=== PATIENT | male | born 1945 | race American Indian/Alaskan Native ===

== ENCOUNTER 2016-08-28 10:28 | Outpatient (CLI) | payer MEDICARE ==
[2016-08-28 11:53] LABS: Blood Urea Nitrogen 13 mg/dL (9-20)
== END 2016-08-28 10:29 | disposition home or self-care (01) ==
LOC: CT 10:28
PROVIDERS: ATTEND Specialist
DX: N28.1 Cyst of kidney, acquired (principal); R16.0 Hepatomegaly, not elsewhere classified
CPT/HCPCS: 36415; 82565; 84520

== ENCOUNTER 2016-09-25 08:39 | Outpatient (CLI) | payer MEDICARE ==
[2016-09-25] MEDS ORDERED: NACL ONE (09:00)
--- NOTE | 2016-09-26 11:55 | Cat Scan Report ---
CT ABDOMEN WITH AND WITHOUT CONTRAST: HISTORY: Hepatitis C, right hepatic lobe mass, septated right renal mass/cyst. TECHNIQUE: Helical CT before and after IV contrast. Sagittal and coronal reformatted images. Please note that an IV infiltration occurred during the contrast portion of this exam. This is essentially a noncontrast CT. COMPARISON: Ultrasound right upper quadrant dated 04/07/14. FINDINGS: This patient was an extremely difficult IV placement candidate. Unfortunately, during the contrast administration, the IV infiltrated. The patient was treated in the CT department with good results. Unfortunately, the contrast portion of this exam is suboptimal. This is essentially a noncontrast CT. The liver is normal size. There is an ill-defined hypodense mass in the right hepatic lobe measuring 2.5 cm on image 77, series 3. No other suspicious liver lesion is appreciated. There is no evidence for cirrhosis or advanced parenchymal disease. Correlation is made with the ultrasound performed in 2013. I do not clearly see this right hepatic lobe lesion on the previous ultrasound. The spleen measures 11.7 cm. There are 3 or 4 similar-appearing hypodense lesions measuring up to 1.5 cm. The remainder of the spleen is unremarkable. The biliary system, pancreas, left kidney and bilateral adrenal glands are unremarkable. There is a 4.5 cm cyst projecting from the anterior right kidney with single internal septation. This cyst has increased in size since the previous ultrasound where it measured 3.6 cm. This has the appearance of a Bosniak class 2 cyst. The visualized bowel loops are unremarkable. The aorta is normal caliber. No bulky abdominal mass or adenopathy. No ascites. Heart size is within normal limits. The lung bases are clear. IMPRESSION: This is a limited noncontrast exam secondary to IV infiltration. The noncontrast CT images do demonstrate a 2.5 cm ill-defined hypodense mass in the right hepatic lobe. I cannot characterize this lesion further without a good IV contrast examination. With history of hepatitis C, I cannot exclude a liver neoplasm. There are also 3 or 4 similar-appearing hypodense lesions in the spleen. Further imaging is required in my opinion. Consider a repeat CT abdomen with contrast and triple phase liver protocol or an MRI abdomen with postcontrast dynamic imaging. This patient may require a PICC line placement as there was extreme difficulty in getting IV access in this patient.
== END 2016-09-25 08:40 | disposition home or self-care (01) ==
LOC: CT 08:39
PROVIDERS: ATTEND Specialist
DX: N28.1 Cyst of kidney, acquired (principal); R16.0 Hepatomegaly, not elsewhere classified; B19.20 Unspecified viral hepatitis C without hepatic coma; N28.89 Other specified disorders of kidney and ureter
CPT/HCPCS: 74170; Q9967

== ENCOUNTER 2016-11-30 15:29 | Emergency (ER) | payer MEDICARE ==
[2016-12-01 02:16] VITALS: BP 117/76
--- NOTE | 2016-12-01 09:02 | XRay Report ---
Portable chest: Cough. The lungs are hyperlucent and probably hyperinflated. No infiltrates or nodules identified. Mildly tortuous aorta with normal heart size. No vascular congestion. No prior exam for comparison. Impression: Probable hyperinflation.
== END 2016-12-01 02:49 ==
LOC: ED 15:29
DX: J00 Acute nasopharyngitis [common cold] (principal); Z53.21 Procedure and treatment not carried out due to patient leaving prior to being seen by health care provider
CPT/HCPCS: 71010; 93005; 93010

== ENCOUNTER 2021-11-18 13:42 | Emergency (ER) | payer MEDICARE ==
[2021-11-18] MEDS ORDERED: LORazepam 2 MG/ML VIAL ONE (14:11)
[2021-11-18] MEDS ORDERED: LORazepam 2 MG/ML VIAL IM ONE (14:16)
[2021-11-18] MEDS ORDERED: levETIRAcetam 1000 MG/NS 0.75% 1,000 MG/100 ML BAG IV ONE (14:16)
[2021-11-18 15:26] LABS: Basophils % (Auto) 0.4 % (0.0-1.8); Hematocrit 36.5 % (35.5-45.6); Hemoglobin 12.1 gm/dl (11.8-15.2); Lymphocytes # (Auto) 1.1 K/mm3 (1.2-5.4); Lymphocytes % (Auto) 12.5 % (13.4-35.0); Mean Corpuscular HGB Conc 33 % (32-34); Mean Corpuscular Volume 98 fl (84-94); Monocytes # (Auto) 0.9 K/mm3 (0.0-0.8); Monocytes % (Auto) 10.5 % (0.0-7.3); Red Blood Count 3.72 M/mm3 (3.65-5.03); Red Cell Distribution Width 14.3 % (13.2-15.2)
[2021-11-18 15:27] LABS: Platelet Count 212 K/mm3 (140-440)
[2021-11-18 15:44] LABS: Alanine Aminotransferase 17 units/L (7-56); Albumin 4.4 g/dL (3.9-5); BUN/Creatinine Ratio 15; Blood Urea Nitrogen 17 mg/dL (9-20); Calcium 9.3 mg/dL (8.4-10.2); Hemolysis Index 45
--- NOTE | 2021-11-18 16:06 | Emergency Department Report ---
ED Seizure HPI - General Chief Complaint: Weakness Stated Complaint: WEAKNESS Time Seen by Provider: 11/18/21 14:00 Source: EMS Mode of arrival: Stretcher Limitations: No Limitations - History of Present Illness Initial Comments: 75-year-old male with a past medical history of HIV, dementia, and drug abuse presents from personal correction complaining of feeling shaky on and off since last night. Patient was able to sleep secondary to symptoms. At time of my ED evaluation he states that he is feeling back to normal and is asymptomatic. He does not complain of pain, weakness, and is alert and oriented x3. During my physical examination patient became less responsive and has some mild generalized shaking that gradually intensified suggestive of a seizure. Patient continues to deny that he has a history of seizures however, his medications as per his MAR from the personal correction are included below and include Keppra. It is also initialed that patient has been provided his doses of his medications including for this evening although it is not yet time for his 9 PM dose Patient's medications include alendronate 10mg Apo-Varenicline 1 mg benadryl 50mg qhs Dronabinol 5mg bid Gabapentin 400 mg twice daily Hydrochlorothiazide 25 mg daily Keppra 500 mg twice daily Melatonin 10 mg nightly Methadone 10 mg twice daily Mirtazapine 30 mg nightly Omeprazole 20 mg daily Potassium ER 20 mEq daily Seroquel 300 mg nightly Triumeq qd vitamin D 1.25mg once a week on sundays Patient was on prednisone 50 mg daily from November 13 until November 17 - Related Data Allergies Allergy/AdvReac Type Severity Reaction Status Date / Time No Known Allergies Allergy Verified 11/18/21 13:44 ED Review of Systems ROS: Stated complaint: WEAKNESS Other details as noted in HPI Comment: All other systems reviewed and negative ED Past Medical Hx - Past Medical History Hx Hypertension: Yes Hx HIV: Yes Additional medical history: Hepatitis C, Bone problems. - Surgical History Additional Surgical History: Knee surgery - Bilateral - Social History Smoking Status: Current Every Day Smoker Substance Use Type: None ED Physical Exam - General Limitations: No Limitations - Other Other exam information: General: No acute distress Head: Atraumatic Eyes: normal appearance ENT: Moist mucous membranes Neck: Normal appearance, no midline tenderness Chest: Clear to auscultation bilaterally CV: Regular rate and rhythm Abdomen: Soft, normal bowel sounds, nontender, nondistended, no rebound or guarding Back: Normal inspection Extremity: Normal inspection, full range of motion Neuro: Alert O x 3, no facial asymmetry, speech clear, no gross motor sensory deficit Psych: Appropriate behavior Skin: No rash ED Course Vital Signs 11/18/21 11/18/21 11/18/21 13:43 13:56 15:41 Temperature Pulse Rate 82 74 Respiratory 16 15 Rate Blood Pressure Blood Pressure 160/86 [Left] O2 Sat by Pulse 98 97 98 Oximetry 11/18/21 11/18/21 11/18/21 15:45 16:11 16:15 Temperature Pulse Rate 76 83 79 Respiratory 22 17 13 Rate Blood Pressure Blood Pressure [Left] O2 Sat by Pulse 98 88 100 Oximetry 11/18/21 11/18/21 11/18/21 16:26 16:31 16:45 Temperature 97.7 F Pulse Rate 70 70 Respiratory 19 12 Rate Blood Pressure 150/102 150/102 Blood Pressure [Left] O2 Sat by Pulse 100 100 Oximetry 11/18/21 11/18/21 11/18/21 17:00 17:15 17:30 Temperature Pulse Rate 71 69 67 Respiratory 12 12 12 Rate Blood Pressure 150/102 123/77 123/77 Blood Pressure [Left] O2 Sat by Pulse 100 100 100 Oximetry 11/18/21 11/18/21 11/18/21 17:45 18:00 18:15 Temperature Pulse Rate 67 Respiratory 17 Rate Blood Pressure 119/73 123/76 123/76 Blood Pressure [Left] O2 Sat by Pulse 100 76 L 100 Oximetry 11/18/21 11/18/21 11/18/21 18:30 18:45 19:00 Temperature Pulse Rate Respiratory Rate Blood Pressure 123/76 108/58 108/58 Blood Pressure [Left] O2 Sat by Pulse 100 100 99 Oximetry 11/18/21 11/18/21 11/18/21 19:15 19:30 19:45 Temperature Pulse Rate Respiratory Rate Blood Pressure 116/63 116/63 116/68 Blood Pressure [Left] O2 Sat by Pulse 100 97 99 Oximetry 11/18/21 11/18/21 11/18/21 20:00 20:15 20:30 Temperature Pulse Rate Respiratory Rate Blood Pressure 116/68 106/62 106/62 Blood Pressure [Left] O2 Sat by Pulse 100 99 99 Oximetry 11/18/21 11/19/21 20:46 07:17 Temperature 98.5 F Pulse Rate 91 H Respiratory 15 Rate Blood Pressure Blood Pressure 116/77 [Left] O2 Sat by Pulse 100 Oximetry ED Medical Decision Making - Lab Data Result diagrams: 11/18/21 14:34 11/18/21 14:34 - EKG Data -: EKG Interpreted by Me - Radiology Data Radiology results: report reviewed CT HEAD WITHOUT CONTRAST INDICATION / CLINICAL INFORMATION: seizure, hiv. TECHNIQUE: All CT scans at this location are performed using CT dose reduction for ALARA by means of automated exposure control. COMPARISON: MRI brain 12/28/2014 FINDINGS: HEMORRHAGE: No evidence of intracranial hemorrhage or extra-axial fluid collection. EXTRA-AXIAL SPACES: Cortical sulci, sylvian fissures and basilar cisterns have an unremarkable appearance. VENTRICULAR SYSTEM: The third and lateral ventricles are at the upper limit of normal for size for the patient's age of 75 years. Ventricular size is increased slightly since baseline study 12/28/2014. There is no indication of temporal lobe atrophy.. CEREBRAL PARENCHYMA: No areas of abnormal brain parenchymal attenuation are identified. There is no indication of recent infarction. MIDLINE SHIFT OR HERNIATION: There is no mass effect. CEREBELLUM / BRAINSTEM: Brainstem and cerebellum have an unremarkable appearance. MIDLINE STRUCTURES:No abnormalities of the pituitary gland or pineal region are identified. INTRACRANIAL VESSELS:No abnormalities are identified on this noncontrast head CT. ORBITS: visualized portions of the orbits have an unremarkable appearance. SOFT TISSUES of HEAD: No significant abnormality. CALVARIUM: Evaluation of bone windows reveals no abnormalities. PARANASAL SINUSES / MASTOID AIR CELLS: Visualized portions of the paranasal sinuses are free from inflammatory mucosal disease. Mastoid air cells are normally pneumatized. IMPRESSION: 1. No significant abnormality on head CT without contrast. - Medical Decision Making 75-year-old male with a past medical history of drug abuse presents with complaint of shaking all over. During ED evaluation patient had a witnessed prolonged episode of shaking and seizure. Patient received IM Ativan 2 mg and remained sedated in the ED for an extended period of time. ED work-up including CT head, CBC, CMP, mag, and ammonia level all unremarkable. Patient is noted to have HIV and dementia. He denies history of seizures however, he is on Keppra as per his MAR. Patient was loaded with 1 g of Keppra. Anticipate discharge back to personal correction once mental status is back to baseline. Patient will be signed out to Dr. Quijano with prep and discharged Critical Care Time: No Critical care attestation.: If time is entered above; I have spent that time in minutes in the direct care of this critically ill patient, excluding procedure time. ED Disposition Clinical Impression: Seizure Disposition: HOME / SELF CARE / HOMELESS Is pt being admited?: No Condition: Stable Instructions: Seizure, Adult Additional Instructions: Continue with your current medications as prescribed. follow-up with your doctor or doctor/clinic provided. Return if symptoms worsen as indicated by your discharge instructions. Referrals: ROMULO POSADA MD [Staff Physician] - 3-5 Days (Neurologist)
--- NOTE | 2021-11-18 16:23 | Cat Scan Report ---
CT HEAD WITHOUT CONTRAST INDICATION / CLINICAL INFORMATION: seizure, hiv. TECHNIQUE: All CT scans at this location are performed using CT dose reduction for ALARA by means of automated e xposure control. COMPARISON: MRI brain 12/28/2014 FINDINGS: HEMORRHAGE: No evidence of intracranial hemorrhage or extra-axial fluid collection. EXTRA-AXIAL SPACES: Cortical sulci, sylvian fissures and basilar cisterns have an unremarkable appear ance. VENTRICULAR SYSTEM: The third and lateral ventricles are at the upper limit of normal for size for th e patient's age of 75 years. Ventricular size is increased slightly since baseline study 12/28/2014. T here is no indication of temporal lobe atrophy.. CEREBRAL PARENCHYMA: No areas of abnormal brain parenchymal attenuation are identified. There is no i ndication of recent infarction. MIDLINE SHIFT OR HERNIATION: There is no mass effect. CEREBELLUM / BRAINSTEM: Brainstem and cerebellum have an unremarkable appearance. MIDLINE STRUCTURES:No abnormalities of the pituitary gland or pineal region are identified. INTRACRANIAL VESSELS:No abnormalities are identified on this noncontrast head CT. ORBITS: visualized portions of the orbits have an unremarkable appearance. SOFT TISSUES of HEAD: No significant abnormality. CALVARIUM: Evaluation of bone windows reveals no abnormalities. PARANASAL SINUSES / MASTOID AIR CELLS: Visualized portions of the paranasal sinuses are free from inf lammatory mucosal disease. Mastoid air cells are normally pneumatized. IMPRESSION: 1. No significant abnormality on head CT without contrast. Signer Name: Kenny De Jesus MD Signed: 11/18/2021 4:18 PM Workstation Name: [id number]
[2021-11-19 07:18] VITALS: BP 116/77
--- NOTE | 2021-11-19 11:52 | Electrocardiograph Report ---
[facility] Test Date: 2021-11-18 Test Time: 16:16:19 Pat Name: AZUL UMANZOR Department: Room: Gender: M Database Software Technician: MARGI : 1945 Requested By: ABDELRAHMAN WAYNE Order Number: [id number] Reading MD: Dain Arguelles Measurements Intervals [place] Rate: 77 P: 48 PA: 216 QRS: -3 QRSD: 98 T: 61 QT: 377 QTc: 427 Interpretive Statements Sinus rhythm Borderline prolonged PA interval Probable left atrial enlargement No previous ECG available for comparison Electronically Signed On 11-19-2021 11:52:12 EDT by Dain Arguelles
== END 2021-11-19 08:01 | disposition home or self-care (01) ==
LOC: ED 13:42
DX: R56.9 Unspecified convulsions (principal); F17.200 Nicotine dependence, unspecified, uncomplicated; I10 Essential (primary) hypertension
CPT/HCPCS: 36415; 70450; 80053; 82140; 82962; 83735; 85025; 93005; 96372; 96374; 99284; J2060

== ENCOUNTER 2022-04-21 08:27 | Emergency (ER) | payer MEDICARE ==
[2022-04-21 08:31] VITALS: BP 160/90
[2022-04-21] MEDS ORDERED: LACTULOSE 20 GM/30 ML ORAL LIQD PO ONE (11:55)
--- NOTE | 2022-04-21 12:00 | Emergency Department Report ---
HPI - General Chief Complaint: Abdominal Pain Time Seen by Provider: 04/21/22 11:47 - [facility] HPI: Room 34 The patient is a 76-year-old male presenting with a chief complaint of "I have this huge problem with constipation." Patient states he has had constipation for the past 1.5 weeks. Patient states he passed a small amount of stool this morning. Patient mitts to an episode of nausea/vomiting this morning. Patient states he is try Dulcolax but has not helped. Patient states he has had this problem frequently in the past but this is the first time he had to come to the emergency department for it. ED Past Medical Hx - Past Medical History Hx Hypertension: Yes Hx HIV: Yes (Unknown last CD4 count but states his numbers are normal) Additional medical history: Hepatitis C, Bone problems. - Surgical History Additional Surgical History: Knee surgery - Bilateral - Family History Family history: no significant - Social History Smoking Status: Current Every Day Smoker (1/7 pack/day) Substance Use Type: None (Denies illicit drug use) ED Review of Systems ROS: Stated complaint: ABD PAIN/CONSTIPATION Other details as noted in HPI Constitutional: no symptoms reported Eyes: denies: eye pain ENT: denies: throat pain Respiratory: no symptoms reported Cardiovascular: denies: chest pain Endocrine: no symptoms reported Gastrointestinal: nausea, vomiting, constipation Genitourinary: denies: dysuria Musculoskeletal: denies: back pain Neurological: denies: headache Physical Exam - Physical Exam Vital Signs: Vital Signs 04/21/22 08:30 Temperature 98.5 F Pulse Rate 83 Respiratory 18 Rate Blood Pressure 160/90 [Left] O2 Sat by Pulse 100 Oximetry Physical Exam: GENERAL: The patient is well-developed well-nourished thin male lying on stretcher not appearing to be in acute distress. [] HEENT: Normocephalic. Atraumatic. Extraocular motions are intact. Patient has moist mucous membranes. NECK: Supple. Trachea midline CHEST/LUNGS: Clear to auscultation. There is no respiratory distress noted. HEART/CARDIOVASCULAR: Regular. There is no tachycardia. There is no gallop rub or murmur. ABDOMEN: Abdomen is soft, nontender. Patient is thin in stature. There is no abdominal distention. Patient has normal bowel sounds. SKIN: There is no rash. There is no edema. There is no diaphoresis. NEURO: The patient is awake, alert, and oriented. The patient is cooperative. The patient has no focal neurologic deficits. The patient has normal speech. GCS 15 MUSCULOSKELETAL: There is no evidence of acute injury. RECTAL: No fecal impaction ED Course Vital Signs 04/21/22 08:30 Temperature 98.5 F Pulse Rate 83 Respiratory 18 Rate Blood Pressure 160/90 [Left] O2 Sat by Pulse 100 Oximetry ED Medical Decision Making - Radiology Data Radiology results: report reviewed (2 view abdominal x-ray), image reviewed (2 view abdominal x-ray) interpreted by me: 2 view abdominal [id number] bowel gas pattern [facility] [address] [place] [address] XRay Report Signed Patient: AZUL UMANZOR MR#: [id number] 52 : 1945 Acct:[id number] Age/Sex: 76 / M ADM Date: 04/21/22 Loc: ED Attending Dr: Ordering Physician: ALYSIA ORTIZ MD Date of Service: 04/21/22 Procedure(s): XR abdomen 2V Accession Number(s): [id number] cc: ALYSIA ORTIZ MD Fluoro Time In Minutes: ABDOMEN 2 VIEWS INDICATION / CLINICAL INFORMATION: Constipation. COMPARISON: None available. FINDINGS: TUBES / LINES: None. BOWEL GAS PATTERN: Mild prominence of a few loops of small bowel in the left upper quadrant without obstructive bowel gas pattern. Fecal burden is not excessive. FREE AIR / EXTRALUMINAL GAS: None seen. ADDITIONAL FINDINGS: No significant additional findings. CHEST: Visualized chest shows no significant abnormality. IMPRESSION: 1. No acute findings. Signer Name: Meir Juares MD Signed: 04/21/2022 1:01 PM Workstation Name: [id number] Transcribed By: MISSY Dictated By: MEIR JUARES MD Electronically Authenticated By: MEIR JUARES MD Signed Date/Time: 04/21/22 1301 DD/ 1259 TD/TT: - Differential Diagnosis Constipation Critical care attestation.: If time is entered above; I have spent that time in minutes in the direct care of this critically ill patient, excluding procedure time. ED Disposition Clinical Impression: Constipation Disposition: 07 LEFT AWOL/ELOPED Is pt being admited?: No Does the pt Need Aspirin: No Condition: Undetermined Instructions: Constipation, Adult, [id number] Referrals: CHRIS LICONA MD [Primary Care Provider] - 3-5 Days Time of Disposition: 15:42 (Patient eloped after enema)
--- NOTE | 2022-04-21 13:06 | XRay Report ---
ABDOMEN 2 VIEWS INDICATION / CLINICAL INFORMATION: Constipation. COMPARISON: None available. FINDINGS: TUBES / LINES: None. BOWEL GAS PATTERN: Mild prominence of a few loops of small bowel in the left upper quadrant without o bstructive bowel gas pattern. Fecal burden is not excessive. FREE AIR / EXTRALUMINAL GAS: None seen. ADDITIONAL FINDINGS: No significant additional findings. CHEST: Visualized chest shows no significant abnormality. IMPRESSION: 1. No acute findings. Signer Name: Cooper Quiles MD Signed: 04/21/2022 1:01 PM Workstation Name: [id number]
== END 2022-04-21 16:00 | disposition left against medical advice (07) ==
LOC: ED 08:27
DX: K59.00 Constipation, unspecified (principal); I10 Essential (primary) hypertension; F17.210 Nicotine dependence, cigarettes, uncomplicated; Z72.89 Other problems related to lifestyle; Z79.899 Other long term (current) drug therapy
CPT/HCPCS: 74019; 99283